=== PATIENT | female | born 1965 | race Caucasian/White ===

== ENCOUNTER 2018-05-07 10:55 | Observation (INO) | payer BC ==
[2018-05-07 11:42] LABS: ABS Basophils 0.1 10^3/ul (0-0.2); ABS Eosinophils 0.7 10^3/ul (0-0.6); ABS Lymphocytes 3.2 10^3/ul (1.0-4.8); ABS Monocytes 0.6 10^3/ul (0-0.8); ABS Neutrophils 6.2 10^3/ul (1.5-7.7); ABS Nucleated RBC 0 10^3/ul; Eosinophil % 6.1 % (0-6); Hematocrit 43 % (35-47); Hemoglobin 15.2 g/dl (12.0-16.0); Lymphocyte % 29.7 % (25-47); Mean Corpuscular HGB Conc 35 g/dl (31-36); Mean Corpuscular Hemoglobin 33 pg (27-31); Mean Corpuscular Volume 92 fL (80-97); Nucleated Red Blood Cells % 0; Platelet Count 251 10^3/ul (150-450); Red Blood Count 4.67 10^6/ul (4.00-5.40); Red Cell Distribution Width 14 % (10.5-15); White Blood Count 10.8 10^3/ul (3.5-10.8)
[2018-05-07] MEDS ORDERED: Aspirin 81 mg CHEW TAB* 81 MG TAB.CHEW PO ONE (12:00)
[2018-05-07] MEDS ORDERED: Nitroglycerin TAB 0.4 MG* 0.4 MG TAB SL ONE (12:00)
[2018-05-07 12:14] LABS: EGFR Non-African American 63.3 (>60)
[2018-05-07] MEDS ORDERED: NS 0.9% 1000 ML*IV.FLUID IV ONE (12:58)
[2018-05-07] MEDS ORDERED: Albuterol 2.5 MG/3 ML NEB.SOL* (0.083%) INH PRN (14:08)
[2018-05-07] MEDS ORDERED: Acetaminophen TAB* 325 MG PO PRN (14:08)
[2018-05-07] MEDS ORDERED: Magnesium Hydroxide LIQ* 30 ML UDC PO PRN (14:08)
[2018-05-07] MEDS ORDERED: Al Hydrox/Mg Hydrox/Simet LIQ* 30 ML UDC PO PRN (14:08)
[2018-05-07] MEDS ORDERED: NS 0.9% 1000 ML* 1,000 ML IV SCH (14:15)
--- NOTE | 2018-05-07 17:05 | ECHO ---
Patient: BRANDYN SHANKAR Rec#: [id number] : 1965 Date: 05/07/2018 Age: 52y Height: 185 cm / 72.8 in Weight: 127 kg / 279.9 lbs Sex: F BSA: 2.5 Room#: 11 Admit Date#: 05/07/2018 Type: Inpatient Referring: Raul Palomino Reading: Billie Vasquez MD Occupational Safety And Health Manager: Marce Liao RN RDCS CC: Amy Wallace MD Transthoracic Echocardiogram Indication: Palpitations BP: 137/67 HR: 51 Rhythm: Bradycardia Findings History: Smoker, obesity, GERD, neuropathy, depression. Technical Comments: The study quality is fair. The study is technically limited due to patient body habitus. The study is technically limited due to the patient's smoking history. Completed at 1600. Left Ventricle: The left ventricular chamber size is normal. Mild concentric left ventricular hypertrophy is observed. Global left ventricular wall motion and contractility are within normal limits. There is normal left ventricular systolic function. The estimated ejection fraction is 55-60%. Normal left ventricular diastolic filling is observed. Left Atrium: The left atrial chamber size is normal. Right Ventricle: The right ventricular cavity size is normal. The right ventricular global systolic function is low normal. Right Atrium: The right atrial cavity size is normal. Aortic Valve: The aortic valve is trileaflet. The aortic valve leaflets are mildly thickened. There is a trace of aortic regurgitation. There is no evidence of aortic stenosis. Mitral Valve: The mitral valve leaflets are mildly thickened. There is a trace of mitral regurgitation. There is no evidence of mitral stenosis. Tricuspid Valve: The tricuspid valve leaflets are normal. There is trace tricuspid regurgitation. Unable to estimate the right ventricular systolic pressure. There is no tricuspid stenosis. Pulmonic Valve: The pulmonic valve appears normal. There is a trace pulmonic regurgitation. There is no pulmonic stenosis. Pericardium: There is no significant pericardial effusion. A pericardial fat pad is visualized. Aorta: There is no dilatation of the ascending aorta. There is no dilatation of the aortic arch. There is no dilation of the aortic root. Pulmonary Artery: The main pulmonary artery appears normal. Venous: The inferior vena cava is dilated. There is a greater than 50% respiratory change in the inferior vena cava dimension. Conclusions Mild concentric left ventricular hypertrophy is observed. Global left ventricular wall motion and contractility are within normal limits. The estimated ejection fraction is 55-60%. The right ventricular global systolic function is low normal. Mild valvular sclerosis with good valve function. There is a trace of aortic regurgitation. There is a trace of mitral regurgitation. There is trace tricuspid regurgitation. Measurements Name Value Normal Range RVDdMajor (2D) 3.7 cm (2.2 - 4.4) RAd ISD 4CH 4.7 cm (3.4 - 4.9) RA (A4C)W 3.7 cm (2.9 - 4.6) IVSd (2D) 1.2 cm (0.6 - 1) LVPWd (2D) 1.2 cm (0.6 - 1) LVIDd (2D) 4.3 cm (3.6 - 5.4) LVIDs (2D) 2.9 cm - LV FS (2D) 33 % (25 - 45) Aortic Annulus 2.1 cm (1.4 - 2.6) Ao root diameter (2D) 2.8 cm (2.1 - 3.5) Ascending Ao 3 cm (2.1 - 3.4) Aortic arch 2.9 cm (1.8 - 3.4) LA dimension (AP) 2D 4.1 cm (2.3 - 3.8) LAd ISD 4CH 4.6 cm (2.9 - 5.3) LA ISD 4CH W 4.3 cm (2.5 - 4.5) Name Value Normal Range LA ESV SP 4CH (A/L) 46 ml - LA ESV SP 2CH (A/L) 38 ml - LA ESV BP (A/L) 44 ml - LA ESV BP (A/L) index 17.7 ml/m2 - LA ESV SP 4CH (MOD) 43 ml - LA ESV SP 2CH (MOD) 35 ml - Name Value Normal Range MV E-wave Vmax 0.88 m/sec - MV deceleration time 229 msec - MV A-wave Vmax 0.68 m/sec - MV E:A ratio 1.3 ratio - LV septal e' Vmax 0.11 m/sec - LV lateral e' Vmax 0.1 m/sec - LV E:e' septal ratio 8 ratio - LV E:e' lateral ratio 8.8 ratio - Name Value Normal Range AV Vmax 1.4 m/sec - AV VTI 38 cm - AV peak gradient 8.1 mmHg - AV mean gradient 4.6 mmHg - LVOT Vmax 1 m/sec - LVOT VTI 29.4 cm - LVOT peak gradient 4.2 mmHg - LVOT mean gradient 2.5 mmHg - ZO Vmax 0.97 m/sec - Name Value Normal Range IVC diameter 2.2 cm - Name Value Normal Range PV Vmax 0.92 m/sec -
--- NOTE | 2018-05-07 17:19 | HP ---
CC: Dr. Wallace.* ADMISSION HISTORY AND PHYSICAL: DATE OF ADMISSION: 05/07/18 PATIENT OF ATTENDING HOSPITALIST: Dr. Jose G Ivory.* (DICTATED BY CHELSI CARTER) PRIMARY CARE PHYSICIAN: Dr. Wallace. CHIEF COMPLAINT: Palpations. HISTORY OF PRESENT ILLNESS: Ms. Dailey is a pleasant 52-year-old female, who carries a past medical history significant for anxiety as well as chronic bilateral varicose veins, who presented to the emergency room today referred from her primary care physician with complaints of 2-1/2 to 3 weeks' history of palpitations. The patient notes that her palpitation started with no apparent causes and has been unchanged with her rest or exertion. She reports associated chest heaviness usually after she eats, but denied any heartburn, GERD symptoms, substernal chest pain on exertion, or any other associated symptoms. She in general has been feeling progressively weak and fatigued most of the time, and has less stamina since she had this palpitations. She denies any nausea, vomiting, diaphoresis, history of coronary artery disease, or WV; however, she noticed some liquid diarrhea that started approximately at the same time for the past 2 weeks averaging 3 to 4 loose bowel movements a day. She denies any foul smelling of the stool or bright red blood per rectum. She denies any abdominal pain, nausea, vomiting, dizziness, headache, numbness, or tingling. She was evaluated by her primary care physician and had an EKG in her office, where she was noticed to be bradycardic with questionable first- degree heart block for which she was referred to the emergency room for further evaluation and to discuss further cardiac workup. During her ED visit, the patient had laboratory workup that revealed normal blood count, normal chemistry panel and normal coagulation, as well as D-dimer of less than 200. She notes chronic history of bilateral varicose veins; however, she does not have any history of DVT, PE. She had a recent travel to [place] driving; however, the trip lasted only 3 hours and she took 2 breaks while driving with frequent walking in between. She had an EKG in the emergency room that showed bradycardia and a prolonged QT interval. Given her persistent symptomatic bradycardia, we were asked to see the patient for further evaluation and to discuss admission for observation and further workup of bradycardia and possible chest pain. PAST MEDICAL HISTORY: Significant for anxiety as well as a history of chronic bilateral varicose veins. The patient denies any history of hypertension, diabetes, stroke, coronary artery disease. PAST SURGICAL HISTORY: Significant for cleft palate surgery as well as umbilical and inguinal hernia repair in the past. CURRENT MEDICATIONS: Her medications at home include Zoloft 100 mg p.o. daily. ALLERGIES: Multiple, include AMOXICILLIN, CEFACLOR, CLARITHROMYCIN, DOXYCYCLINE , LACTASE, LATEX. FAMILY HISTORY: Significant for coronary artery disease and WV in both her father and uncle, who in their 50s from heart attacks and her mom at age 24 from pulmonary embolism. SOCIAL HISTORY: The patient is a smoker, smokes about half-a-pack per day for the past 40 years. She drinks alcohol rarely. 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 She is and her daughter, Edelmira, is the healthcare proxy carrier. REVIEW OF SYSTEMS: See HPI. Otherwise, 14 points review of systems were evaluated and they were essentially negative. PHYSICAL EXAMINATION GENERAL: She is a pleasant, obese, middle-aged female, appears healthy and in no acute distress or discomfort at the time of admission. VITAL SIGNS: Revealed a pulse of 67, O2 sat of 96%, respiratory rate of 20, blood pressure of 137/67, and temperature of 98.3. HEENT: Head is normocephalic, atraumatic. Sclerae anicteric. PERRLA. EOMs intact. Oropharynx is pink and moist. NECK: Supple. Trachea midline. No cervical adenopathy, thyromegaly, or JVD. LUNGS: Clear to auscultation bilaterally. HEART: Regular rate and rhythm. Normal S1 and S2 without rubs, murmurs, or gallops. BACK: With normal curvature and no CVA tenderness. BREASTS: Exam deferred at this time. ABDOMEN: Soft, nontender, and nondistended. No hernias, masses, or hepatosplenomegaly. EXTREMITIES: Without cyanosis, clubbing noted. Bilateral lower extremities with multiple superficial small varicose veins, more pronounced on the right side with some old scarring from likely venous stasis ulcers. Calves appear to be equal in diameter at the midcalf area and nontender on palpation. NEUROLOGIC: She is awake, alert, and oriented x3. Neurological exam was grossly intact. RECTAL: Exam deferred at this time. LABORATORY WORKUP: CBC with white count of 8000, hemoglobin 15.2, hematocrit 43, and platelets of 251. Chemistry with sodium of 138, potassium 4.1, chloride 103, CO2 28, BUN of 14, and creatinine of 0.9. LFTs within normal limits. TSH 2.62 and free T4 is 0.77. Her D-dimer was negative. ACCESSORY DIAGNOSTIC DATA: EKG done today, again revealed a sinus bradycardia with prolonged QT intervals and questionable first-degree heart block. ASSESSMENT: A 52-year-old female with past medical history only significant for anxiety and bilateral varicose veins, who has been experiencing palpitations for the past 2 to 3 weeks with increased weakness and fatigue, and found to have ECG changes upon admission. PLAN: 1. Symptomatic bradycardia. The patient will be admitted to a telemetry unit for observation. She appears to be comfortable at this time with no complaints of chest pain; however, she does report occasional chest tightness, usually postprandial. Her troponin was negative and we will trend her troponin during this admission and repeat her EKG in the morning. I will also obtain a stress test given her multiple risk factors and very strong family history of WV. We will also obtain an echocardiogram for further evaluation. The patient has taken a full aspirin in the ED and also needs to be covered with heparin given her varicose vein and higher risk of DVT. 2. Anxiety. We will continue her Zoloft at home. 3. DVT prophylaxis: She is high risk, will be covered with heparin. 4. Code status: She is a full code. 5. Disposition: Admit to Tele for observation and further cardiac workup secondary to symptomatic bradycardia. TIME SPENT: Approximately 60 minutes were spent admitting this patient, with greater than 50% spent taking history and performing physical exam. I discussed the case with my attending, Dr. Ivory, who agreed to the plan of care. CHELSI CARTER [id number]/[facility] #: [id number] [place]
[2018-05-07] MEDS: Heparin VIAL(*) 5000 UNITS/ML VIAL (FIVE THOUSAND) SUBCUT SCH (21:40)
[2018-05-08] MEDS: Heparin VIAL(*) 5000 UNITS/ML VIAL (FIVE THOUSAND) SUBCUT SCH (05:10)
[2018-05-08] MEDS ORDERED: Omeprazole CAP* 20 MG PO SCH (06:00)
[2018-05-08 06:42] LABS: ABS Basophils 0.1 10^3/ul (0-0.2); ABS Eosinophils 0.8 10^3/ul (0-0.6); ABS Lymphocytes 2.7 10^3/ul (1.0-4.8); ABS Monocytes 0.6 10^3/ul (0-0.8); ABS Neutrophils 4.4 10^3/ul (1.5-7.7); ABS Nucleated RBC 0 10^3/ul; Eosinophil % 9.5 % (0-6); Hematocrit 41 % (35-47); Hemoglobin 14.3 g/dl (12.0-16.0); Lymphocyte % 31.4 % (25-47); Mean Corpuscular HGB Conc 35 g/dl (31-36); Mean Corpuscular Hemoglobin 32 pg (27-31); Mean Corpuscular Volume 92 fL (80-97); Mean Platelet Volume 8.1 um3 (7.4-10.4); Nucleated Red Blood Cells % 0.1; Platelet Count 210 10^3/ul (150-450); Red Blood Count 4.42 10^6/ul (4.00-5.40); Red Cell Distribution Width 14 % (10.5-15); White Blood Count 8.6 10^3/ul (3.5-10.8)
[2018-05-08 07:06] LABS: EGFR Non-African American 81.1 (>60)
[2018-05-08] MEDS ORDERED: Sertraline* 100 MG TAB PO SCH (09:00)
--- NOTE | 2018-05-08 11:06 | RAD ---
Edited for charges. INDICATION: Chest pain, palpitations. Family history of heart disease. COMPARISON: No relevant prior exams available on the [facility] PACS for comparison. TECHNIQUE: 10.800 mCi of Tc-99m Myoview were administered IV. SPECT images of the heart were obtained. Later on the same day. Under the direction of Dr. Oviedo, the patient was given an IV injection of a pharmacologic stress agent. Subsequently, the patient was given an IV injection of 25.100 mCi Tc-99m Myoview. SPECT images of the heart were obtained and a gated wall motion study was performed. FINDINGS: Gated wall motion images were obtained at stress and demonstrate hypokinesia at the apical and mid inferior wall segments and throughout the septum. The calculated left ventricular ejection fraction is 67 % at stress. Estimated LEFT ventricular end diastolic volume is 135 mL. TID 0.93. Artifact from inferior gut activity. Based on review of the attenuation corrected and non corrected images the distribution of radiopharmaceutical within the myocardium on the stress and rest images is within normal limits. No fixed or reversible regions of hypoperfusion evident. IMPRESSION: #. Dilated LEFT ventricle. Septal and inferior wall hypokinesia. Normal range estimated LEFT ventricular ejection fraction. #. No scintigraphic evidence for stress-induced ischemia or infarct. ASSESSMENT: Low risk based on nuclear portion. Based on imaging criteria from ACC/AHA 2002 Guideline Update for the Management of Patients With Chronic Stable Angina Table 23. Noninvasive Risk Stratification. MTDD
[2018-05-08 12:00] VITALS: BP 143/70
--- NOTE | 2018-05-08 12:32 | RAD ---
INDICATION: RIGHT calf pain. History of tobacco use and diabetes. COMPARISON: April 27, 2016 TECHNIQUE: Romo scale, color Doppler, and spectral analysis of the deep veins of the RIGHT lower extremity. Vessel compression, phasicity, and augmentation assessed. REPORT: The RIGHT common femoral, great saphenous, profunda femoral, femoral, popliteal, peroneal, and posterior tibial veins are patent. Patency of the LEFT common femoral vein documented. IMPRESSION: No evidence for RIGHT lower extremity deep venous thrombosis.
[2018-05-08] MEDS ORDERED: Regadenoson* 0.4 MG/5 ML SYRINGE ONE (14:29)
--- NOTE | 2018-05-08 23:33 | DS ---
CC: Dr. Wallace.* DISCHARGE SUMMARY: DATE OF ADMISSION: DATE OF DISCHARGE: 05/08/18 HISTORY OF PRESENT ILLNESS: This 52-year-old woman presented with a chief complaint of palpitations. She also reported chest heaviness, mostly after eating. She does not do any strenuous physical activity. She does work between 2 and 7 hours a day, more or less on her own. She had a recent 3-hour trip to [place] with 2 stops. The rest of the history and physical exam were detailed in the dictated admission note. She has had heart palpitations for 2-1/2 to 3 weeks. She was admitted to a telemetry unit. She had 3 troponin levels, all of which were within normal limits. She underwent a nuclear stress test on the day of discharge that showed no evidence of ischemia or infarction. She had an echo- cardiogram on 05/07/18, which showed an ejection fraction of 55% to 60%, left ventricular wall motion and contractility were within normal limits. There is mild concentric left ventricular hypertrophy. I note on 05/08/18, her cholesterol was 248, LDL was 157, triglycerides 250, HDL 41.3. The patient was advised to quit smoking and avoid second-hand smoke. She was advised to lose weight and exercise more. She was instructed to ask Dr. Wallace about having a possible event monitor as well as to evaluate her high cholesterol. The patient states she has had cholesterol medications in the past , which did not seem to help. I told her that a significant change in her diet would definitely help. FINAL DIAGNOSES: 1. Palpitations. 2. Tobacco use disorder. 3. Obesity. 4. Hypercholesterolemia. DISCHARGE MEDICATIONS: 1. Sertraline 100 mg daily. [id number]/[facility] #: [id number] [facility]
--- NOTE | 2018-05-09 11:14 | ED ---
Beth Villar Tenzin, scribed for Stas Fontanez MD on 05/07/18 at 1139 . Palpitations / Dysrhythmia - HPI Summary HPI Summary: Pt is a 52 years old female presenting to the ED complaining of heart palpitations and chest pain for the last 2-3 weeks. She describes it as it feels like my heart skips a beat and she rates the pain at 5/10 in severity. She notes that when she eats, It stays in her upper test. Per triage, she notes that at her PCP they did an EKG with a 1st degree heart block finding. At triage, she complained of SOB. Pt is also complaining of waking up exhausted from her usual 5-6 hrs of sleep. Pt denies: Fever, Chills, Erythema (eyes), Sore throat, cough, abd pain, V/N/D, Dysuria, dizziness, Hematuria, Myalgia, Edema and rash. No aggravating and alleviating factors were noted. She did not take NTG or aspirin. Currently she does not have a heart doctor. She is a smoker. She reports that her stress test was done long time ago. - History of Current Complaint Chief Complaint: EDDysrhythmPalp Time Seen by Provider: 05/07/18 11:19 Hx Obtained From: Patient Associated Signs & Symptoms: Chest Pain, Shortness of Breath - Allergy/Home Medications Allergies/Adverse Reactions: Allergies Allergy/AdvReac Type Severity Reaction Status Date / Time amoxicillin Allergy Unknown Verified 05/07/18 13:20 Reaction Details cefaclor Allergy Unknown Verified 05/07/18 13:20 Reaction Details clarithromycin Allergy Unknown Verified 05/07/18 13:20 Reaction Details doxycycline Allergy Hives Verified 05/07/18 13:20 lactase [From Dairy Aid] Allergy Swelling Verified 05/07/18 13:20 latex Allergy Rash Verified 05/07/18 13:20 Sulfa (Sulfonamide Allergy Unknown Verified 05/07/18 13:20 Antibiotics) Reaction Details Home Medications: Home Medications Sertraline* [Zoloft*] 100 mg PO DAILY 05/07/18 [History Confirmed 05/07/18] PMH/Surg Hx/FS Hx/Imm Hx Endocrine/Hematology History: Denies: Hx Diabetes Cardiovascular History: Denies: Hx Hypertension, Hx Pacemaker/ICD GI History: Reports: Hx Gastroesophageal Reflux Disease - USES HERBAL THINGS TO HELP WITH PRN Musculoskeletal History: Reports: Hx Arthritis - KNEES, Hx Bursitis - SHOULDERS , Hx Tendonitis - WRISTS Sensory History: Reports: Hx Contacts or Glasses - READING GLASSES Denies: Hx Hearing Aid Opthamlomology History: Reports: Hx Contacts or Glasses - READING GLASSES Psychiatric History: Reports: Hx Depression - ON MEDICATION FOR Denies: Hx Panic Disorder - Surgical History Surgery Procedure, Year, and Place: TONSILLECTOMY 1976-LEFT EAR DRUM REPAIR HERNIA-2004 1965-CLEFT PALATE HERNIS REPAIR 11/2014 Hx Anesthesia Reactions: No Infectious Disease History: No Infectious Disease History: Denies: Traveled Outside the [place] in Last 30 Days - Family History Known Family History: Positive: Cardiac Disease - Social History Alcohol Use: None Substance Use Type: Reports: Marijuana Substance Use Comment - Amount & Last Used: daily Smoking Status (MU): Light Every Day Tobacco Smoker Amount Used/How Often: 1/2-3/4 PPD X 37 YEARS Have You Smoked in the Last Year: Yes Review of Systems Positive: Other - POSITIVE: MALAISE. . Negative: Fever, Chills Negative: Erythema Negative: Sore Throat Positive: Palpitations, Chest Pain, Other - POSITIVE: CHEST HEAVINESS Positive: Shortness Of Breath Negative: Vomiting, Diarrhea, Nausea Negative: dysuria, hematuria Negative: Myalgia, Edema Negative: Rash All Other Systems Reviewed And Are Negative: Yes Physical Exam - Summary Physical Exam Summary: Constitutional: Well-developed, Well-nourished, Alert. (-) Distressed Skin: Warm, Dry HENT: Normocephalic; Atraumatic Eyes: Conjunctiva normal Neck: Musculoskeletal ROM normal neck. (-) JVD, (-) Stridor, (-) Tracheal deviation Cardio: irregularly irregular pulse, rate normal, Heart sounds normal; Intact distal pulses; The pedal pulses are 2+ and symmetric. Radial pulses are 2+ and symmetric. (-) Murmur Pulmonary/Chest wall: Effort normal. (-) Respiratory distress, (-) Wheezes, (-) Rales Abd: Soft, (-) Tenderness, (-) Distension, (-) Guarding, (-) Rebound Musculoskeletal: (-) Edema Lymph: (-) Cervical adenopathy Neuro: Alert, Oriented x3 Psych: Mood and affect Normal Triage Information Reviewed: Yes Vital Signs On Initial Exam: Initial Vitals Temp Pulse Resp BP Pulse Ox 98.3 F 56 16 155/77 99 05/07/18 11:18 05/07/18 11:18 05/07/18 11:18 05/07/18 11:18 05/07/18 11:18 Vital Signs Reviewed: Yes Diagnostics - Vital Signs Vital Signs Temp Pulse Resp BP Pulse Ox 05/07/18 11:23 54 21 155/77 100 05/07/18 11:21 16 05/07/18 11:18 98.3 F 56 16 155/77 99 - Laboratory Result Diagrams: 05/07/18 11:30 05/07/18 11:30 Lab Statement: Any lab studies that have been ordered have been reviewed, and results considered in the medical decision making process. - EKG 11:20 Cardiac Rate: Bradycardia - at 55 BPM EKG Interpretation: Non STEMI Re-Evaluation - Re-Evaluation First Eval Re-Evaluation Time: 13:31 Comment: Pt rates the chest pain at 3/10 and describes it as burning. Pt did not take Nitro or aspirin as she is nervous about sensitivity to medication. I advised her strongly to take the aspirin at ED today. Course/Dx - Course Course Of Treatment: Pt is a 52 years old female presenting to the ED complaining of heart palpitations and chest pain for the last 2-3 weeks. At 13: 31, Pt rates the chest pain at 3/10 and describes it as burning. Pt did not take Nitro or aspirin as she is nervous about sensitivity to medication. I advised her strongly to take the aspirin at ED today. Bloodwork is obtained today. Pt has a high risk for CAD. Consulted with hospitalist and pt will be admitted. - Diagnoses Provider Diagnoses: Chest pain, unspecified, PVC (premature ventricular contraction) - Physician Notifications Discussed Care Of Patient With: Yuan Ivory - Pt will be admitted. Discharge - Sign-Out/Discharge Documenting (check all that apply): Discharge/Admit/Transfer - Admit - Discharge Plan Condition: Fair Disposition: ADMITTED TO [facility] documentation as recorded by the Beth orr Tenzin accurately reflects the service I personally performed and the decisions made by me, Stas Fontanez MD.
== END 2018-05-08 13:05 | disposition home or self-care (01) ==
LOC: ED 10:55 → MEDTELE 14:08
PROVIDERS: ADMIT Internal Medicine; ATTEND Internal Medicine
DX: R00.2 Palpitations (principal); F17.210 Nicotine dependence, cigarettes, uncomplicated; E66.9 Obesity, unspecified; E78.00 Pure hypercholesterolemia, unspecified; F32.9 Major depressive disorder, single episode, unspecified; K21.9 Gastro-esophageal reflux disease without esophagitis; I44.4 Left anterior fascicular block; M79.661 Pain in right lower leg; Z79.899 Other long term (current) drug therapy; Z88.1 Allergy status to other antibiotic agents; Z88.2 Allergy status to sulfonamides; F41.9 Anxiety disorder, unspecified; I83.93 Asymptomatic varicose veins of bilateral lower extremities; R94.31 Abnormal electrocardiogram [ECG] [EKG]; Z82.49 Family history of ischemic heart disease and other diseases of the circulatory system
CPT/HCPCS: 36415; 78452; 80048; 80053; 80061; 83605; 83735; 84439; 84443; 84484; 85025; 85379; 93005; 93017; 93306; 94660; 96372; 99284; A9270-GY; A9502; G0378; J1644; J2785

== ENCOUNTER 2023-01-10 05:38 | Inpatient (IN) ==
[2023-01-10] MEDS ORDERED: Buffered Lidocaine 1% SYRIN 1 ml INTRADERM ONE (06:00)
[2023-01-10] MEDS ORDERED: Lactated Ringers 1000 ml BAG 1,000 ML IV SCH (06:00)
[2023-01-10] MEDS ORDERED: Famotidine IV 10 MG/ML 2 ml VIAL (20 mg) IV ONE (06:00)
[2023-01-10] MEDS ORDERED: Clindamycin 900 MG/D5W BAG 900 MG/50 ML BAG IVPB ONE (06:06)
[2023-01-10] MEDS ORDERED: Famotidine IV 10 MG/ML 2 ml VIAL (20 mg) ONE (06:43)
[2023-01-10] MEDS ORDERED: Midazolam 5 mg/5 ml VIAL 1 mg/ml 5 ml VIAL (5 mg) ONE (07:12)
[2023-01-10] MEDS ORDERED: fentaNYL 100 mcg/2 ml 50 MCG/ML VIAL ONE (07:12)
[2023-01-10] MEDS ORDERED: ROPIVACAINE 5 MG/ML 30 ML BTL (0.5%) ONE ×2 (07:13→07:14)
[2023-01-10] MEDS ORDERED: Naloxone 0.4 mg VIAL 0.4 mg/ml 1 ml VIAL IV PRN (08:02)
[2023-01-10] MEDS ORDERED: fentaNYL 100 mcg/2 ml 50 MCG/ML VIAL IV PRN (08:02)
[2023-01-10] MEDS ORDERED: HYDROmorphone 1 MG/1 ML SYRINGE IV PRN (08:02)
[2023-01-10] MEDS ORDERED: Dexamethasone IV 4 MG/ML VIAL 1 ml VIAL ONE ×2 (08:33→08:35)
[2023-01-10] MEDS ORDERED: Ondansetron 4 mg VIAL 2 MG/ML 2 ml VIAL ONE (08:33)
[2023-01-10] MEDS ORDERED: Acetaminophen IV 1 GM/100ML 1,000 MG/100 ML BAG IV ONE (08:36)
[2023-01-10] MEDS ORDERED: Propofol 10 MG/ML 20 ML BTL ONE (09:12)
[2023-01-10] MEDS ORDERED: Ondansetron 4 mg VIAL 2 MG/ML 2 ml VIAL IV PRN (10:22)
[2023-01-10] MEDS ORDERED: Lactulose 30 ml UDC PO PRN (10:22)
[2023-01-10] MEDS ORDERED: Morphine 2 MG/ML SYRINGE IV PRN (10:22)
[2023-01-10] MEDS ORDERED: Ondansetron ODT 4 mg TAB 4 MG TAB PO PRN (10:22)
[2023-01-10] MEDS ORDERED: Magnesium Hydroxide LIQ 30 ML UDC PO PRN (10:22)
[2023-01-10] MEDS: Lactated Ringers 1000 ml BAG 1,000 ML IV SCH (12:57)
[2023-01-10] MEDS: Clindamycin 600 MG/D5W BAG 600 MG/50 ML BAG IV SCH (15:52)
[2023-01-10] MEDS: Magnesium Hydroxide LIQ 30 ML UDC PO SCH (20:47)
[2023-01-11] MEDS: Lactated Ringers 1000 ml BAG 1,000 ML IV SCH (00:05)
[2023-01-11] MEDS: Clindamycin 600 MG/D5W BAG 600 MG/50 ML BAG IV SCH ×2 (00:05→07:55)
[2023-01-11 06:41] LABS: Hematocrit 36 % (35-47); Mean Platelet Volume 8.8 fL (7.4-10.4); Platelet Count 188 10^3/uL (150-450)
[2023-01-11 06:53] LABS: Calcium 8.7 mg/dL (8.6-10.3); Creatinine, Serum 0.75 mg/dL (0.51-0.95); Potassium 3.9 mmol/L (3.5-5.0); eGFR CKD-EPI 92.8 (>60)
[2023-01-11] MEDS: Magnesium Hydroxide LIQ 30 ML UDC PO SCH (07:57)
[2023-01-11] MEDS ORDERED: Vitamin THERAPEUTIC TAB PO SCH (09:00)
[2023-01-11] MEDS ORDERED: POTASSIUM CITRATE 99 MG PO SCH (09:00)
[2023-01-11 11:06] VITALS: BP 106/53
== END 2023-01-11 13:35 | disposition home or self-care (01) | DRG 302 ==
LOC: AA 05:38
PROVIDERS: ADMIT Orthopaedic Surgery Adult Reconstructive Orthopaedic Surgery; ATTEND Orthopaedic Surgery Adult Reconstructive Orthopaedic Surgery